=== PATIENT | male | born 1950 | race Caucasian/White ===

== ENCOUNTER 2016-09-14 10:17 | Inpatient (IN) | payer MEDICARE, OTHER ==
[~2016-09-14] VITALS: Ht 165.1 cm; Wt 60.3 kg
[2016-09-14] VITALS (44 sets, daily range): BP systolic 95–159; RESP 9–25; TEMP 98; Ht 165.1 cm; Wt 60.3 kg
[~2016-09-14 10:17] MED LIST: LIDOCAINE 2% 20 ML ONE; TICAGRELOR 90 MG TAB ONE
[2016-09-14] MEDS ORDERED: ASPIRIN 81 MG CHEW TAB ONE (10:29)
[2016-09-14] MEDS ORDERED: MIDAZOLAM 2 MG/2 ML INJ IV PRN (12:20)
[2016-09-14] MEDS ORDERED: PROMETHAZINE 25 MG/ML VIAL IV PRN (12:20)
[2016-09-14] MEDS ORDERED: SALINE FLUSH 10 ML FLUSH PRN (12:20)
[2016-09-14] MEDS ORDERED: LIDOCAINE 2% 20 ML SUBQ ONE (12:20)
[2016-09-14] MEDS ORDERED: SODIUM CHLORIDE 0.9% 1,000 ML IV SCH (12:20)
[2016-09-14] MEDS ORDERED: NITROGLYCERIN 50 MG/250 ML 250 ML IV PRN (12:20)
[2016-09-14] MEDS ORDERED: ONDANSETRON 4 MG VIAL IV PRN (12:20)
[2016-09-14] MEDS ORDERED: MIDAZOLAM 2 MG/2 ML INJ IV ONE (12:20)
[2016-09-14] MEDS ORDERED: TEMAZEPAM 7.5 MG CAP PO PRN (12:20)
[2016-09-14] MEDS ORDERED: DOCUSATE SOD 100 MG CAP PO PRN (12:20)
[2016-09-14] MEDS ORDERED: ACETAMINOPHEN 325 MG TAB PO PRN (12:20)
[2016-09-14] MEDS ORDERED: ATROPINE 1 MG/10 ML SYRINGE IV PRN (12:20)
[2016-09-14] MEDS ORDERED: NITROGLYCERIN SL 0.4 MG TAB SL PRN (12:20)
[2016-09-14] MEDS: LORAZEPAM 0.5 MG TAB PO PRN (18:52)
[2016-09-14] MEDS ORDERED: MISSING DOSE XX ONE (21:45)
[2016-09-14] MEDS: BACLOFEN 10 MG TAB PO SCH (21:48)
[2016-09-14] MEDS: GABAPENTIN 600 MG TAB PO SCH (21:48)
[2016-09-14] MEDS: TRAZODONE 100 MG TAB PO SCH (21:48)
[2016-09-14] MEDS: SALINE FLUSH 10 ML FLUSH SCH (21:48)
[2016-09-14] MEDS: RANOLAZINE ER 500 MG TAB PO SCH (21:49)
[2016-09-14] MEDS: Atorvastatin 40 MG TAB PO SCH (23:05)
[2016-09-14] MEDS: TICAGRELOR 90 MG TAB PO SCH (23:06)
[2016-09-15] VITALS (37 sets, daily range): BP systolic 104–176; RESP 10–25; TEMP 97.9–99.3
[2016-09-15] MEDS ORDERED: MIDAZOLAM 2 MG/2 ML INJ ONE (04:17)
[2016-09-15] MEDS ORDERED: FENTANYL 100 MCG/2 ML AMP ONE (04:17)
[2016-09-15] MEDS: SODIUM CHLORIDE 0.9% FLUSH BAG 500 ML IV SCH (06:00)
[2016-09-15] MEDS: PANTOPRAZOLE 40 MG TAB PO SCH (06:20)
[2016-09-15] MEDS: SALINE FLUSH 10 ML FLUSH SCH ×2 (08:12→21:11)
[2016-09-15] MEDS: ASPIRIN 81 MG CHEW TAB PO SCH (08:12)
[2016-09-15] MEDS: TICAGRELOR 90 MG TAB PO SCH ×2 (08:13→21:11)
[2016-09-15] MEDS: METOPROLOL XL 25 MG TAB PO SCH (08:13)
[2016-09-15] MEDS: BACLOFEN 10 MG TAB PO SCH ×3 (08:14→21:11)
[2016-09-15] MEDS: RANOLAZINE ER 500 MG TAB PO SCH ×2 (08:14→21:11)
[2016-09-15] MEDS: GABAPENTIN 600 MG TAB PO SCH ×3 (08:14→21:16)
[2016-09-15] MEDS ORDERED: DUONEB INH PRN (10:15)
[2016-09-15] MEDS: LISINOPRIL 5 MG TAB PO SCH (10:46)
[2016-09-15] MEDS: DUONEB INH SCH ×2 (12:24→19:56)
[2016-09-15] MEDS: TRAZODONE 100 MG TAB PO SCH (21:11)
[2016-09-15] MEDS: Atorvastatin 40 MG TAB PO SCH (21:11)
[2016-09-15] MEDS: LORAZEPAM 0.5 MG TAB PO PRN (22:52)
[2016-09-16] MEDS: SODIUM CHLORIDE 0.9% FLUSH BAG 500 ML IV SCH (01:58)
[2016-09-16 03:18] VITALS: BP_SYST 145; RESP 16; TEMP 99.2
[2016-09-16] MEDS: PANTOPRAZOLE 40 MG TAB PO SCH (05:50)
[2016-09-16] MEDS: DUONEB INH SCH ×2 (06:33→11:30)
[2016-09-16 07:29] VITALS: BP_SYST 147; RESP 16; TEMP 98.7
[2016-09-16] MEDS: ASPIRIN 81 MG CHEW TAB PO SCH (08:50)
[2016-09-16] MEDS: BACLOFEN 10 MG TAB PO SCH (08:51)
[2016-09-16] MEDS: LISINOPRIL 5 MG TAB PO SCH (08:51)
[2016-09-16] MEDS: TICAGRELOR 90 MG TAB PO SCH (08:51)
[2016-09-16] MEDS: RANOLAZINE ER 500 MG TAB PO SCH (08:51)
[2016-09-16] MEDS: SALINE FLUSH 10 ML FLUSH SCH (08:51)
[2016-09-16] MEDS: METOPROLOL XL 25 MG TAB PO SCH (08:51)
[2016-09-16] MEDS: GABAPENTIN 600 MG TAB PO SCH (08:54)
[2016-09-16 11:46] VITALS: BP_SYST 135; RESP 16; TEMP 98.5
[2016-09-16 12:18] VITALS: BP_SYST 135; RESP 16; TEMP 98.5
== END 2016-09-16 12:56 | disposition home or self-care (01) | DRG 251 ==
LOC: ENRESERVDT → ENRESERVTM → ER 10:17 → EMR 12:35 → ENPENDDIS 12:35 → CCU 13:06 → 4THE 09-15 12:40
PROVIDERS: ADMIT Internal Medicine Cardiovascular Disease; ATTEND Internal Medicine Cardiovascular Disease
PROC: 02703ZZ Dilation of Coronary Artery, One Artery, Percutaneous Approach (ICD-10-PCS; principal; 2016-09-14)
PROC: 4A023N7 Measurement of Cardiac Sampling and Pressure, Left Heart, Percutaneous Approach (ICD-10-PCS; 2016-09-14)
PROC: B2111ZZ Fluoroscopy of Multiple Coronary Arteries using Low Osmolar Contrast (ICD-10-PCS; 2016-09-14)
PROC: B2131ZZ Fluoroscopy of Multiple Coronary Artery Bypass Grafts using Low Osmolar Contrast (ICD-10-PCS; 2016-09-14)
PROC: 4A12XSH Monitoring of Cardiac Vascular Perfusion using Indocyanine Green Dye, External Approach (ICD-10-PCS; 2016-09-14)
PROC: B2151ZZ Fluoroscopy of Left Heart using Low Osmolar Contrast (ICD-10-PCS; 2016-09-14)
DX: I21.09 ST elevation (STEMI) myocardial infarction involving other coronary artery of anterior wall (principal); I25.810 Atherosclerosis of coronary artery bypass graft(s) without angina pectoris; J44.9 Chronic obstructive pulmonary disease, unspecified; I10 Essential (primary) hypertension; I25.10 Atherosclerotic heart disease of native coronary artery without angina pectoris; Z95.5 Presence of coronary angioplasty implant and graft; Z87.891 Personal history of nicotine dependence; E78.5 Hyperlipidemia, unspecified; K21.9 Gastro-esophageal reflux disease without esophagitis; Z79.82 Long term (current) use of aspirin; Z79.01 Long term (current) use of anticoagulants; Z79.52 Long term (current) use of systemic steroids
CPT/HCPCS: 36415; 70450; 71010; 80048; 80053; 80061; 82550; 82553; 82947; 83735; 84484; 85014; 85018; 85025; 85347; 85610; 85730; 92941; 93005; 93306; 93458; 94640; 94799; 96361; 96374